=== PATIENT | male | born 1960 | race Caucasian/White ===

== ENCOUNTER 2018-12-31 17:23 | Outpatient (REF) | payer BC, SELFPAY ==
[2018-12-31 22:57] LABS: ALT 46 U/L (16-63); AST 37 U/L (15-37); Albumin 4.3 g/dL (3.4-5.0); Alkaline Phosphatase 111 U/L (46-116); Anion Gap 10.3 mmol/L (3-11); BUN 17 mg/dL (7-18); Bilirubin, Total 0.3 mg/dL (0.2-1.0); CO2 26.7 mmol/L (21.0-32.0); CREATININE 0.98 mg/dL (0.70-1.30); Calcium 8.8 mg/dL (8.5-10.1); Chloride 102 mmol/L (98-107); Glucose 103 mg/dL (70-100); Potassium 4.4 mmol/L (3.5-5.1); Sodium 139 mmol/L (136-145); Total Protein 7.5 g/dL (6.4-8.2)
[2019-01-05 08:11] LABS: PSA, Screening 3.6 ng/mL (0.0-3.5)
== END 2018-12-31 17:43 ==
LOC: NCHCN 17:23
PROVIDERS: PCP Family Medicine; Visit Provider Family Medicine
DX: Z00.00 Encounter for general adult medical examination without abnormal findings (principal); I10 Essential (primary) hypertension; E78.5 Hyperlipidemia, unspecified; I25.10 Atherosclerotic heart disease of native coronary artery without angina pectoris; Z12.5 Encounter for screening for malignant neoplasm of prostate
CPT/HCPCS: 80053; 84153

== ENCOUNTER 2019-09-18 07:31 | Outpatient (CLI) | payer BC, SELFPAY ==
[2019-09-22 03:12] LABS: COVID-19 RT-PCR Result NEGATIVE (Negative)
== END 2019-09-18 07:51 ==
PROVIDERS: PCP Family Medicine; Visit Provider Surgery
DX: Z01.818 Encounter for other preprocedural examination (principal)
CPT/HCPCS: U0003

== ENCOUNTER 2019-09-22 07:08 | Day surgery (SDC) | payer BC, SELFPAY ==
[2019-09-22 07:21] VITALS: BP 166/109; PULSE 67; RESP 18; TEMP 36.7; O2SAT 100
[2019-09-22] MEDS: Lactated Ringers 1,000 ML 80 ML IV (07:45)
--- NOTE | 2019-09-22 08:47 | BOWEL_PTH ---
PATIENT: Kevin Gustafson LOC: [facility] U#:[id number] AGE/SX: 59/M ROOM: RE09/22/[address]: Dolores Khanna : 1960 BED: DIS: 09/22/2019 SPEC #: [id number] RECD: 09/22/19 12:39 STATUS: OLGA RE #: [id number] JOSE: 09/22/19 08:[address]: Dolores Khanna DEPT: Surgical Specimen RECD BY: Yumiko Stallworth ENTERED: 09/22/19 12:40 SP TYPE: Bowel OTHR DR: Tomasa Tolliver V Tissues: 1 - BIOPSY BOWEL 2 - BIOPSY BOWEL 3 - BIOPSY BOWEL Procedures: GROSS AND MICRO LEVEL 4 Comments: [id number]
--- NOTE | 2019-09-22 09:41 | COLE_ITS ---
Date of service: 09/22/19 Time of Service: 09:41 Colonoscopy Report Date of procedure: 09/22/19 Pre-op diagnosis general: CRC screen Post-op diagnosis procedure note: other (polyp- 70 cm- cold bx. 25cm x2 hot snare. 30cmx1 hot biting ) Procedure: CE and poly[ectomy x4 Surgeon: Dolores Khanna Anesthesia proc note operative: MAC Estimated blood loss (mL): 1 Pathology: other Complications: None Disposition: same day Prep: Miralax/Dulcolax Retraction Time: 15 mins Procedure Description: After informed consent was obtained the patient was taken to the procedure room and placed in a left decubitous position. Monitors were applied and a time out was done. The patients name, date of , procedure, allergies to medications and metal in their body was reviewed. The patient was then sedated. Once sedated and comfortable a rectal exam was done. External exam was normal. Internal exam revealed a normal sphincter tone and no palpable masses. The prostate not palpable. The scope was then introduced and retrofelexed. no internal hemorrhoids were identified. The scope was then advanced to the cecum w/out difficulty. The TI and appendiceal orifice were identified. The prep was adequate. The scope was then slowly retracted over 15 minutes back into the rectum. Polyps were removed at: 70cm w/ cold forcept. 30cm w/ hot forcept. 25cm- x2 w/ hot snare. Spec imen is retrieved and no bleeding is noted. There is no AVMs or diverticula apparent. Mucosa is pink and healthy.. The scope was removed and the patient was woken up and taken back to Same day surgery in stable condition. The patient tolerated the procedure well and there were no immediate complications. Follow up: The patient should follow up in 3-5 years, path pd- unless they develop changes in bowel habits or other new gastrointestinal complaints.
--- NOTE | 2019-09-22 09:45 | PDOC.DSDIS_ITS ---
Discharge Plan Disposition Patient Disposition: HOME Condition: Good Discharge Details Attending Provider: Dolores Khanna Primary Care Provider: Tomasa Tolliver V Home Meds and New Rx's Prescriptions: Discontinued bisacodyl [Dulcolax (bisacodyl)] 5 mg tablet,delayed release (DR/EC) 5 mg PO ONCE Qty: 4 RF: 0 polyethylene glycol 3350 17 gram/dose powder 17 g PO ONCE Qty: 238 RF: 0 aspirin 325 mg tablet 325 mg PO DAILY RF: 0 No Action nitroglycerin [Nitrostat] 0.4 mg tablet, sublingual 0.4 mg SL Q5M PRNRF: 0 atorvastatin [Lipitor] 40 mg tablet 40 mg PO QHS RF: 0 triamcinolone acetonide 0.1 % ointment 1 applic TP BID RF: 0 carvedilol 6.25 mg tablet 6.25 mg PO BID RF: 0 lisinopril 20 mg tablet 20 mg PO DAILY RF: 0 Chantix 1 mg tablet 1 mg PO BID RF: 0 Discharge Instructions Additional Instructions: Findings: polyps x4. Follow up:repeat in 3-5 yrs. Will send a letter in 2-3 wks w/ biopsy results and when to repeat scope. No ASA/NSAIDs for 2weeks. Please call if you develop: fevers >101.5 Nausea or Vomiting Abdominal pain that is not transient DAY SURGERY UNIT POST COLONOSCOPY INSTRUCTIONS 1. Because there will be medication in your system for the next 24 hours, you may feel a little sleepy. Your coordination will be affected. Therefore: a. Do not drive or operate dangerous equipment for 24 hours. b. Do not drink alcohol beverages for 24 hours (not even beer). c. Plan to go home and rest for the day. 2. Generally there are no restrictions on your activity after a day or so has gone by, but you may feel a bit fatigued for a few days. 3 After you arrive home you may have a light meal and return to a normal diet as you can tolerate it without feeling sick to your stomach. 4. After surgery, you may feel pain or discomfort. This should be only tr ansient, but if it persists please contact your doctor. 5. If there are any questions regarding the findings of your procedure, please feel free to contact your doctor. 6. If you are unable to contact your doctor with a problem, contact the hospital at [phone]. 1. Continue all your regular medications unless directed otherwise. I understand the above instructions and have no questions. Signature of Patient or Responsible Adult Escort Date/Time Name of Responsible Adult Escort Signature of Nurse Date/Time Activity:: no lifting over 20#'s x 24 hrs Diet:: small light meals x 24 hrs Discharge Orders Discharge Orders: Discharge Order (Routine); Ordered 09/22/19 Ordered By: Dolores Khanna DS: Diagnosis Discharge Diagnosis (1) Colon cancer screening: Status: Acute (2) CAD (coronary artery disease): Status: Chronic (3) History of tobacco abuse: Status: Acute (4) Hyperlipidemia: Status: Acute (5) HTN (hypertension): Status: Chronic
[2019-09-22 10:04] VITALS: BP 170/93; PULSE 58; RESP 18; TEMP 36.2; O2SAT 100
== END 2019-09-22 10:23 | disposition home or self-care (01) ==
PROVIDERS: PCP Family Medicine; Visit Provider Surgery
PROC: 0DJD8ZZ Inspection of Lower Intestinal Tract, Via Natural or Artificial Opening Endoscopic (ICD-10-PCS; CPT 45378; principal; 2019-09-22 08:30)
DX: Z12.11 Encounter for screening for malignant neoplasm of colon (principal); D12.6 Benign neoplasm of colon, unspecified; K63.5 Polyp of colon
CPT/HCPCS: 45385; 45380; 45384; 88305; J2001; J2704

== ENCOUNTER 2020-05-02 15:38 | Outpatient (REF) | payer BC, SELFPAY ==
[2020-05-04 13:16] LABS: COVID-19 RT-PCR UVMMC Result Negative (Negative)
== END 2020-05-02 15:39 | disposition home or self-care (01) ==
LOC: NCHCN 15:38
PROVIDERS: PCP Family Medicine; Visit Provider Physician Assistant Medical
DX: Z20.822 Contact with and (suspected) exposure to COVID-19 (principal); J06.9 Acute upper respiratory infection, unspecified
CPT/HCPCS: U0003

== ENCOUNTER 2021-07-04 09:05 | Outpatient (REF) | payer BC, SELFPAY ==
[2021-07-05 15:03] LABS: COVID-19 RT-PCR UVMMC Result Negative (Negative)
== END 2021-07-04 09:06 | disposition home or self-care (01) ==
LOC: NCHCN 09:05
PROVIDERS: PCP Family Medicine; Visit Provider Family Medicine
DX: Z20.822 Contact with and (suspected) exposure to COVID-19 (principal)
CPT/HCPCS: U0003

== ENCOUNTER 2021-07-20 17:23 | Outpatient (REF) | payer BC, SELFPAY ==
[2021-07-20 16:28] LABS: ALT 61 U/L (16-63); AST 50 U/L (15-37); Alkaline Phosphatase 123 U/L (46-116); Anion Gap 9.4 mmol/L (3-11); BUN 13 mg/dL (7-18); Bilirubin, Total 0.5 mg/dL (0.2-1.0); CO2 26.6 mmol/L (21.0-32.0); CREATININE 0.8 mg/dL (0.70-1.30); Calcium 8.7 mg/dL (8.5-10.1); Calculated LDL 82 mg/dL (<100); Chloride 101 mmol/L (98-107); Cholesterol 171 mg/dL (<200); Glucose 89 mg/dL (74-106); HDL Cholesterol 76 mg/dL (40-60); Sodium 137 mmol/L (136-145); Total Protein 7.1 g/dL (6.4-8.2); Triglyceride 65 mg/dL (<150)
[2021-07-20 16:41] LABS: C-Reactive Protein 0.09 mg/dL (0.0-0.3)
[2021-07-20 22:47] LABS: PSA, Screening 5.8 ng/mL (<=4.5)
== END 2021-07-20 17:24 | disposition home or self-care (01) ==
LOC: NCHCN 17:23
PROVIDERS: PCP Family Medicine; Visit Provider Family Medicine
DX: Z00.00 Encounter for general adult medical examination without abnormal findings (principal); I10 Essential (primary) hypertension; E78.5 Hyperlipidemia, unspecified; Z12.5 Encounter for screening for malignant neoplasm of prostate
CPT/HCPCS: 80053; 80061; 84153; 86140

== ENCOUNTER 2022-02-01 11:40 | Outpatient (REF) | payer BC, SELFPAY ==
[2022-02-01 16:27] LABS: ALT 48 U/L (16-63); AST 51 U/L (15-37); Albumin 4.4 g/dL (3.4-5.0); Alkaline Phosphatase 131 U/L (46-116); Anion Gap 9.1 mmol/L (3-11); BUN 14 mg/dL (7-18); Bilirubin, Total 0.5 mg/dL (0.2-1.0); CO2 27.9 mmol/L (21.0-32.0); CREATININE 0.9 mg/dL (0.70-1.30); Chloride 100 mmol/L (98-107); Estimated GFR 97.17 (mL/min/1.73m2); Glucose 97 mg/dL (74-106); Potassium 3.8 mmol/L (3.5-5.1); Sodium 137 mmol/L (136-145); Total Protein 7.6 g/dL (6.4-8.2)
[2022-02-04 09:53] LABS: PSA, Diagnostic 6.3 ng/mL (<=4.5)
== END 2022-02-01 11:41 | disposition home or self-care (01) ==
LOC: NCHCN 11:40
PROVIDERS: PCP Family Medicine; Visit Provider Family Medicine
DX: I25.10 Atherosclerotic heart disease of native coronary artery without angina pectoris (principal); I10 Essential (primary) hypertension; R97.20 Elevated prostate specific antigen [PSA]
CPT/HCPCS: 80053; 84153

== ENCOUNTER 2022-08-09 09:26 | Outpatient (REF) | payer BC, SELFPAY ==
[2022-08-09 17:45] LABS: ALT 37 U/L (16-63); AST 32 U/L (15-37); Albumin 4.1 g/dL (3.4-5.0); Alkaline Phosphatase 110 U/L (46-116); Anion Gap 10.5 mmol/L (3-11); BUN 14 mg/dL (7-18); Bilirubin, Total 0.4 mg/dL (0.2-1.0); CO2 25.5 mmol/L (21.0-32.0); CREATININE 0.7 mg/dL (0.70-1.30); Calcium 8.8 mg/dL (8.5-10.1); Chloride 100 mmol/L (98-107); Estimated GFR 104.18 (mL/min/1.73m2); Glucose 98 mg/dL (74-106); Potassium 3.9 mmol/L (3.5-5.1); Sodium 136 mmol/L (136-145); Total Protein 7.4 g/dL (6.4-8.2)
[2022-08-12 09:51] LABS: PSA, Diagnostic 6.3 ng/mL (<=4.5)
[2022-08-12 10:16] LABS: Lyme Ab w Rflx to Lyme Confirm Negative (Negative)
[2022-08-13 16:50] LABS: Anaplasma phagocytophilum Negative (Negative); B. miyamotoi PCR Negative (Negative); Babesia divergens/MO-1 Negative (Negative); Babesia duncani Negative (Negative); Babesia microti Negative (Negative); Ehrlichia chaffeensis Negative (Negative); Ehrlichia ewingii/canis Negative (Negative); Ehrlichia muris eauclairensis Negative (Negative)
== END 2022-08-09 09:27 | disposition home or self-care (01) ==
LOC: NCHCN 09:26
PROVIDERS: PCP Family Medicine; Visit Provider Family Medicine
DX: R21 Rash and other nonspecific skin eruption (principal)
CPT/HCPCS: 80053; 87798; 84153; 86618

== ENCOUNTER 2023-03-07 12:17 | Outpatient (REF) | payer BC, SELFPAY ==
[2023-03-07 16:49] LABS: ALT 30 U/L (16-63); AST 28 U/L (15-37); Albumin 4.1 g/dL (3.4-5.0); Alkaline Phosphatase 115 U/L (46-116); Anion Gap 8.5 mmol/L (3-11); BUN 13 mg/dL (7-18); Bilirubin, Total 0.5 mg/dL (0.2-1.0); CO2 27.5 mmol/L (21.0-32.0); CREATININE 0.9 mg/dL (0.70-1.30); Calcium 9.1 mg/dL (8.5-10.1); Chloride 100 mmol/L (98-107); Estimated GFR 95.97 (mL/min/1.73m2); Glucose 102 mg/dL (74-106); Potassium 3.9 mmol/L (3.5-5.1); Sodium 136 mmol/L (136-145); Total Protein 7.5 g/dL (6.4-8.2)
== END 2023-03-07 12:18 | disposition home or self-care (01) ==
LOC: NCHCN 12:17
PROVIDERS: Nurse Practitioner Gerontology; PCP Family Medicine; Visit Provider Family Medicine
DX: I10 Essential (primary) hypertension (principal); R97.20 Elevated prostate specific antigen [PSA]
CPT/HCPCS: 80053; 84153

== ENCOUNTER 2024-02-10 16:08 | Outpatient (REF) | payer BC, SELFPAY ==
[2024-02-10 20:42] LABS: ALT 29 U/L (16-63); AST 39 U/L (15-37); Albumin 4.2 g/dL (3.4-5.0); Alkaline Phosphatase 131 U/L (46-116); Anion Gap 12.6 mmol/L (3-11); BUN 19 mg/dL (7-18); Bilirubin, Total 0.57 mg/dL (0.2-1.0); CO2 26.4 mmol/L (21.0-32.0); CREATININE 1.1 mg/dL (0.70-1.30); Calcium 9.3 mg/dL (8.5-10.1); Chloride 101 mmol/L (98-107); Estimated GFR 74.96 (mL/min/1.73m2); Glucose 103 mg/dL (74-106); Potassium 3.8 mmol/L (3.5-5.1); Sodium 140 mmol/L (136-145); Total Protein 7.7 g/dL (6.4-8.2)
[2024-02-11 18:39] LABS: PSA, Diagnostic 5.9 ng/mL (<=4.5)
== END 2024-02-10 16:09 | disposition home or self-care (01) ==
LOC: NCHCN 16:08
PROVIDERS: PCP Family Medicine; Visit Provider Family Medicine
DX: I10 Essential (primary) hypertension (principal); R97.20 Elevated prostate specific antigen [PSA]
CPT/HCPCS: 80053; 84153

== ENCOUNTER 2024-09-11 13:38 | Observation (INO) | payer BC, SELFPAY ==
[2024-09-11] VITALS (16 sets, daily range): BP systolic 137–235; BP diastolic 81–123; PULSE 75–94; RESP 16–24; TEMP 36.4–36.6; O2SAT 94–98
[2024-09-11 13:57] LABS: Abs Immature Grans 0.02 10^3/uL (0.0-0.06); HCT 40.3 % (40.0-50.0); HGB 13.9 g/dL (13.5-17.5); Immature Grans % 0.3 %; MCH 31.2 pg (27.0-33.0); MCHC 34.5 % (32.0-36.0); MCV 90 fL (80-95); MPV 9.0 fL (8.0-11.0); Platelet Count 184 10^3/uL (130-400); RBC 4.46 10^6/uL (4.36-5.78); RDW 12.1 % (11.8-14.1); RDW-SD 40.3 fL; WBC 7.51 10^3/uL (4.4-10.8)
[2024-09-11] MEDS: methylPREDNISolone SUCC 125 MG VIAL IVP (14:01)
[2024-09-11] MEDS: diphenhydrAMINE 50 MG/ML VIAL IVP (14:02)
[2024-09-11] MEDS: EPINEPHrine 1 MG/ML AMP pres-free 0.3 MG SC (14:02)
[2024-09-11] MEDS: Tranexamic Acid 1,000 MG/10 ML VIAL 1000 MG IVP (14:02)
--- NOTE | 2024-09-11 14:08 | ED.GENADUL_ITS ---
Discharge Plan Disposition Patient Disposition: Admit to [facility] Condition: Stable Discharge Details Clinical Impression: Angioedema due to angiotensin converting enzyme inhibitor (JUSTIN-I) Primary Care Provider: Tomasa Tolliver V ED Provider: Morelia Moyer Home Meds and New Rx's Prescriptions: No Action nitroglycerin [Nitrostat] 0.4 mg tablet, sublingual 0.4 mg SL Q5M PRN Rx Instructions: do not exceed 3 doses per episode atorvastatin [Lipitor] 40 mg tablet 40 mg PO QHS carvedilol 6.25 mg tablet 6.25 mg PO BID Rx Instructions: must administer with a meal/food aspirin 325 mg tablet,delayed release (DR/EC) 325 mg PO DAILY lisinopril 20 mg tablet 40 mg PO DAILY HPI General Mode of arrival: ambulatory . Date/Time Provider Initiated Documentation: 09/11/24 13:39 . Limitations to Documentation: no limitations . Information obtained by: patient, family and old records reviewed . HPI Narrative: This is a 64-year-old male patient with a past medical history significant for CAD, hypertension, and hyperlipidemia who is presenting for evaluation of facial swelling. The patient reports that he was in his normal state of health today, was working outside in the jolly and began to feel swelling in his lip and his face. He states that he did have to swat at the bee but he is not sure if he actually got stung. He initially had some rounding of his nose, took a Zyrtec at home but has not noted any improvement in his symptoms. The significant swelling prompted him to seek care today. The patient has never had an allergic reaction before, reports no recent new exposures to foods, lotions or soaps, etc. He has not noted any new skin changes or hives, has not had nausea or vomiting, and denies throat swelling or difficulty breathing. His reports that he has had intermittent facial swelling like this, sometimes limited to the eyes, sometimes involving the mouth, but has come and gone for some time. He did recently have his lisinopril dose increased to 40 mg daily. Related Data Home Medications ?Medication ?Instructions ?Recorded ?Confirmed atorvastatin 40 mg tablet (Lipitor) 40 mg PO QHS 08/2209/11/24 carvedilol 6.25 mg tablet 6.25 mg PO BID 06/29/20 07/1 9/25 nitroglycerin 0.4 mg sublingual 0.4 mg sublingual Q5M PRN 08/23/19 09/11/24 tablet (Nitrostat) aspirin 325 mg tablet,delayed 325 mg PO DAILY 02/14/22 09/11/24 release lisinopril 20 mg tablet 40 mg PO DAILY 04/09/2308/24 Allergies Allergy/AdvReac Type Severity Reaction Status Date / Time No Known Allergies Allergy Verified 09/11/24 13:48 General Stated Complaint: Allergic SHRUTI: 2 Exam Narrative Exam Narrative: Gen: Awake and alert, in no apparent distress HEENT: Non-icteric sclera, PERRL, no conjunctival injection, EOMs are full and without entrapment, no visual changes reported. The patient has periorbital edema underneath both eyes, and swelling/angioedema of the upper lip. His posterior pharynx is without erythema or swelling, he is managing his secretions and has no trismus. Neck: Supple Lungs: No apparent respiratory distress, normal respiratory effort. No stridor or wheezing appreciated on auscultation CV: Appears well perfused, heart with regular rate and rhythm, strong distal pulses, soft, nontender Abdomen: Non-distended MSK: Moves 4 extremities without apparent limitation in ROM Skin: Visualized skin without urticaria, the patient does have some psoriatic plaques appreciated to his lower back, unchanged from prior Neuro: Normal Gait, no obvious focal deficits or facial asymmetry. Speaks in full, clear sentences. Psych: Appropriate for situation. Course Vital Signs Vital signs: Vital Signs Pulse 94 H 09/11/24 13:42 Respiratory Rate 18 09/11/24 13:42 Blood Pressure 235/123 H 09/11/24 13:42 Pulse Oximetry 98 09/11/24 13:42 Pulse 94 H 09/11/24 13:42 Respiratory Rate 18 09/11/24 13:42 Blood Pressure 235/123 H 09/11/24 13:42 Pulse Oximetry 98 09/11/24 13:42 Lab/Test Results Lab/Test Results: Laboratory Tests Range/Units 09/11/24 13:51 WBC (4.4-10.8) 10^3/uL 7.51 RBC (4.36-5.78) 10^6/uL 4.46 Hgb (13.5-17.5) g/dL 13.9 Hct (40.0-50.0) % 40.3 MCV (80-95) fL 90 MCH (27.0-33.0) pg 31.2 MCHC (32.0-36.0) % 34.5 RDW (11.8-14.1) % 12.1 Plt Count (130-400) 10^3/uL 184 MPV (8.0-11.0) fL 9.0 Immature Gran % % 0.3 Neutrophils % % 69.9 Lymphocytes % % 19.2 Monocytes % % 7.2 Eosinophils % % 2.1 Basophils % % 1.3 Nucleated RBC % (0.0-0.3) % 0.0 Absolute Neutrophils (1.2-6.7) 10^3/uL 5.25 Absolute Lymphocytes (1.2-3.4) 10^3/uL 1.44 Absolute Monocytes (0.1-0.8) 10^3/uL 0.54 Absolute Eosinophils (0.0-0.7) 10^3/uL 0.16 Absolute Basophils (0.0-0.2) 10^3/uL 0.10 Medical Decision Making This is a 64-year-old male patient presenting for evaluation of facial swelling. My differential includes but is not limited to JUSTIN inhibitor induced angioedema, certainly considered anaphylaxis and allergic reaction. Reassuringly, the patient does not seem to have airway involvement at this time and does not require intubation for airway protection. The patient has no family history or longstanding history of angioedema and JUSTIN inhibitor is more compelling than a diagnosis of hereditary angioedema at this time. Considered metabolic electrolyte derangements, kidney injury, anemia. I will provide the patient with anaphylaxis treatment given the question of potential bee sting, to include epinephrine, diphenhydramine, and prednisone. Given the angioedema and the JUSTIN inhibitor use I will also provide him with a gram of TXA. The patient will be monitored in our emergency department, but will likely require admission for observation. - I independently interpreted the laboratory studies, which show no significant leukocytosis, anemia, or thrombocytopenia. The chemistry panel is without evidence of electrolyte abnormality, kidney dysfunction, or liver injury, with the exception of a hypomagnesemia to 1.4. This was repleted intravenously. The patient had some improvement in his angioedema but not resolution. He did not have any extension into the airway nor development of shortness of breath or difficulty managing secretions. I feel that the patient would benefit from a 24-hour observation given that he received epinephrine and this is his first event that his been identified in the medical environment. He will require cessation of his lisinopril and identification of an alternative agent for blood pressure management. The patient does endorse daily drinking but does not report any history of withdrawal syndrome, though the hospitalist was made aware of this in our handoff. He has been graciously accepted to the hospitalist service for ongoing observation, and was transerred to their care without incident. Morelia Moyer MD [facility] All Active Problems (Updated 09/11/24 @ 16:48 by Morelia Moyer MD) Angioedema due to angiotensin converting enzyme inhibitor (JUSTIN-I) (Acute) Alcohol abuse (Chronic) Angioedema (Acute) Atherosclerotic heart disease (Acute) Hx of adenomatous colonic polyps (Acute) Tobacco use (Acute) COVID-19 (Acute) Psoriasis (Chronic) Elevated PSA (Acute) Tubulovillous adenoma (Acute ~09/22/19) Pre-op evaluation (Acute) Colon cancer screening (Acute) CAD (coronary artery disease) (Chronic) History of tobacco abuse (Acute) Hyperlipidemia (Acute) HTN (hypertension) (Chronic) Medical History Fracture of left clavicle s/p ORIF 2011 Hx of fracture of clavicle ORIF l clavicle- Lucille Pneumothorax L side approx 1997 or 1998 Sessile colonic polyp Surgical History History of heart artery stent LAD in 2011 Social History Smoking/Tobacco Use Status: Current every day Tobacco Type: cigarettes Years smoked: 25 Smoking risk assessment performed?: Yes Alcohol Intake: current Alcohol Intake frequency: 0-2 drinks per day Alcohol type: hard liquor Drug use: Never Substance use type: does not use Do you feel safe at home: Yes Do you feel safe in your relationship?: Yes PAWSS Have you Been Recently Intoxicated or Drunk Within the Last 30 days?: No Have you Ever Experienced Previous Episodes of Alcohol Withdrawal?: No Have you ever Experienced Withdrawal Seizures?: No Have you ever Experienced Delirium Tremens(DT)s?: No Have you ever undergone Alcohol Rehabilitation Treatment (i.e, inpt ot outpatient treatment programs)?: No Have you ever Experienced Blackouts?: No Have you ever Combined Alcohol with other Downers within the last 90 days?: No Have you ever Combined Alcohol with any other Substance of Abuse during the last 90 days?: No Positive Blood Alcohol level on Presentation? [PCS.BAL]: No Evidence of Increased Autonomic Activity (i.e. HR>120, tremor, sweating, agitation, nausea)?: No Result: 0
[2024-09-11 14:23] LABS: ALT 35 U/L (16-63); AST 40 U/L (15-37); Albumin 4.1 g/dL (3.4-5.0); Alkaline Phosphatase 132 U/L (46-116); Anion Gap 12.3 mmol/L (3-11); BUN 12 mg/dL (7-18); Bilirubin, Total 0.6 mg/dL (0.2-1.0); CO2 26.7 mmol/L (21.0-32.0); Calcium 9.1 mg/dL (8.5-10.1); Chloride 98 mmol/L (98-107); Estimated GFR 98.83 (mL/min/1.73m2); Glucose 128 mg/dL (74-106); Magnesium 1.4 mg/dL (1.8-2.4); Potassium 3.5 mmol/L (3.5-5.1); Sodium 137 mmol/L (136-145); Total Protein 8.0 g/dL (6.4-8.2)
[2024-09-11] MEDS: MAGNESIUM SULFATE 2 GM/50 ML BAG IV_INF (15:04)
--- NOTE | 2024-09-11 16:11 | W.PM.HP.N ---
Date of service: 09/11/24 Time of Service: 16:11 Assessment and Plan Assessment and plan (1) Angioedema: Status: Acute Assessment and plan: ` I will put the patient on scheduled Benadryl as well as prednisone. Monitor overnight and reevaluate in the morning. Patient should switch from JUSTIN inhibitor to an ARB or another hypertensive medication. (2) HTN (hypertension): Status: Chronic Assessment and plan: Patient is currently on Coreg as well as lisinopril. Will need to have an ARB added prior to discharge. Will need optimization in the outpatient setting (3) History of tobacco abuse: Status: Acute Assessment and plan: NicoDerm as needed (4) Alcohol abuse: Status: Chronic Assessment and plan: Patient has a history of daily alcohol use with no history of DTs. At this point we will just do a CIWA protocol and Ativan if needed. Order completeness will add thiamine while he is here. DVT prophylaxis with Lovenox History of Present Illness History of Present Illness Chief Complaint: swelling of lips Narrative: This is a 64-year-old gentleman who has a known history of hypertension and takes lisinopril 40 mg daily. Presents with angioedema to the ED and was subsequently admitted to the hospital service for monitoring overnight. The patient was treated with steroids, Benadryl, and epinephrine. Patient improved remarkably with these interventions. On further interview, the patient has never had this before. He does endorse daily alcohol use as well as tobacco use. Patient denies any history of DTs. He is otherwise without complaint. Patient does not endorse any other problems at this time. PFSH All Active Problems (Updated 09/11/24 @ 16:14 by Morales Schaffer MD) Alcohol abuse (Chronic) Angioedema (Acute) Atherosclerotic heart disease (Acute) Hx of adenomatous colonic polyps (Acute) Tobacco use (Acute) COVID-19 (Acute) Psoriasis (Chronic) Elevated PSA (Acute) Tubulovillous adenoma (Acute ~09/22/19) Pre-op evaluation (Acute) Colon cancer screening (Acute) CAD (coronary artery disease) (Chronic) History of tobacco abuse (Acute) Hyperlipidemia (Acute) HTN (hypertension) (Chronic) Medical History Fracture of left clavicle s/p ORIF 2011 Hx of fracture of clavicle ORIF l clavicle- Lucille Pneumothorax L side approx 1997 or 1998 Sessile colonic polyp Surgical History History of heart artery stent LAD in 2012 Social History Smoking/Tobacco Use Status: Current every day Tobacco Type: cigarettes Years smoked: 25 Smoking risk assessment performed?: Yes Alcohol Intake: current Alcohol Intake frequency: 0-2 drinks per day Alcohol type: hard liquor Drug use: Never Substance use type: does not use Do you feel safe at home: Yes Do you feel safe in your relationship?: Yes Meds Allergies and Home Medications Allergies Allergy/AdvReac Type Severity Reaction Status Date / Time No Known Allergies Allergy Verified 09/11/24 13:48 Home Medications ?Medication ?Instructions ?Recorded ?Confirmed ?Type atorvastatin 40 mg tablet (Lipitor) 40 mg PO QHS 08/23/19 09/11/24 History carvedilol 6.25 mg tablet 6.25 mg PO BID 08/23/19 09/11/24 History nitroglycerin 0.4 mg sublingual 0.4 mg sublingual Q5M PRN 08/23/19 09/11/24 History tablet (Nitrostat) aspirin 325 mg tablet,delayed 325 mg PO DAILY 02/14/22 09/11/24 History release lisinopril 20 mg tablet 40 mg PO DAILY 04/09/23 09/11/24 History Exam Narrative Exam Narrative: HEENT-normocephalic atraumatic mucous membranes moist oropharynx clear Neck-no lymphadenopathy no JVD no thyromegaly Cardiovascular-regular rate and rhythm no murmur rubs or gallops Lungs-clear to auscultation bilaterally with good air exchange there is absolutely no accessory muscle use. Abdomen-soft nontender nondistended Extremities-no sinus clubbing or edema bilaterally Neurologic-cranial nerves II through XII intact as tested nonfocal exam Results Labs 09/11/24 13:51 09/11/24 13:51 Labs: Laboratory Results - last 24 hr 09/11/24 13:51 WBC 7.51 RBC 4.46 Hgb 13.9 Hct 40.3 MCV 90 MCH 31.2 MCHC 34.5 RDW 12.1 Plt Count 184 MPV 9.0 Immature Gran % 0.3 Neutrophils % 69.9 Lymphocytes % 19.2 Monocytes % 7.2 Eosinophils % 2.1 Basophils % 1.3 Nucleated RBC % 0.0 Absolute Neutrophils 5.25 Absolute Lymphocytes 1.44 Absolute Monocytes 0.54 Absolute Eosinophils 0.16 Absolute Basophils 0.10 Sodium 137 Potassium 3.5 Chloride 98 Carbon Dioxide 26.7 Anion Gap 12.3 H BUN 12 Creatinine 0.8 Est GFR (CKD-EPI 2020) 98.83 Glucose 128 H Calcium 9.1 Magnesium 1.4 L Total Bilirubin 0.6 AST 40 H ALT 35 Alkaline Phosphatase 132 H Total Protein 8.0 Albumin 4.1 Last Vital Signs Pulse 83 09/11/24 15:31 Resp 20 09/11/24 15:31 BP 169/86 H 09/11/24 15:31 Pulse Ox 96 09/11/24 15:31 PAWSS Have you Been Recently Intoxicated or Drunk Within the Last 30 days?: No Have you Ever Experienced Previous Episodes of Alcohol Withdrawal?: No Have you ever Experienced Withdrawal Seizures?: No Have you ever Experienced Delirium Tremens(DT)s?: No Have you ever undergone Alcohol Rehabilitation Treatment (i.e, inpt ot outpatient treatment programs)?: No Have you ever Experienced Blackouts?: No Have you ever Combined Alcohol with other Downers within the last 90 days?: No Have you ever Combined Alcohol with any other Substance of Abuse during the last 90 days?: No Positive Blood Alcohol level on Presentation? [PCS.BAL]: No Evidence of Increased Autonomic Activity (i.e. HR>120, tremor, sweating, agitation, nausea)?: No Result: 0 Time Spent Time spent with Patient: 40-54 minutes Time was spent: preparing to see the patient(eg.review tests), obtaining and/or reviewing separately otained hiistory, ordering medications,tests, procedures, referring, communicating with other health critical care unit manager, indepentently interpreting results, counseling the patient and care coordination
--- NOTE | 2024-09-11 17:02 | W.PC.ACHO ---
Registration Status: REG ER Primary Language: Preferred Language: Macedonian ED Information & Data Chief Complaint Allergic 09/11/24 14:12 Triage Note Patient complaining of 09/11/24 13:42 allergic reaction to a possible bee sting. Swelling to eyes, face and lips. denies SOB Medical / Surgical History (Last Reviewed 11/26/22 @ 10:00 by Sharona Ricketts DNP) Sessile colonic polyp Hx of fracture of clavicle Fracture of left clavicle Pneumothorax (Last Reviewed 11/26/22 @ 10:00 by Sharona Ricketts DNP) History of heart artery stent Most Recent Vital Signs Pulse 85 09/11/24 16:46 Pulse 85 09/11/24 16:46 Respiratory Rate 19 09/11/24 16:46 Respiratory Effort Normal 09/11/24 14:24 Respiratory Pattern Normal 09/11/24 14:24 Blood Pressure 170/93 H 09/11/24 16:46 Blood Pressure Mean 121 09/11/24 16:46 Pulse Oximetry 96 09/11/24 16:46 Allergies No Known Allergies Allergy (Verified 09/11/24 13:48) Precautions Isolation Standard precaution 09/11/24 13:51 IV IV Catheter Type [Left Wrist] Saline Lock IV Catheter Gauge [Left Wrist] 18 Diet Orders Category Date Time Status Regular/Normal [DIET] Nutrition 09/11/24 Dinner Active Diagnostics 09/11/24 Range/Units 13:51 WBC 7.51 (4.4-10.8) 10^3/uL RBC 4.46 (4.36-5.78) 10^6/uL Hgb 13.9 (13.5-17.5) g/dL Hct 40.3 (40.0-50.0) % MCV 90 (80-95) fL MCH 31.2 (27.0-33.0) pg MCHC 34.5 (32.0-36.0) % RDW 12.1 (11.8-14.1) % Plt Count 184 (130-400) 10^3/uL MPV 9.0 (8.0-11.0) fL Immature Gran % 0.3 % Neutrophils % 69.9 % Lymphocytes % 19.2 % Monocytes % 7.2 % Eosinophils % 2.1 % Basophils % 1.3 % Nucleated RBC % 0.0 (0.0-0.3) % Absolute Neutrophils 5.25 (1.2-6.7) 10^3/uL Absolute Lymphocytes 1.44 (1.2-3.4) 10^3/uL Absolute Monocytes 0.54 (0.1-0.8) 10^3/uL Absolute Eosinophils 0.16 (0.0-0.7) 10^3/uL Absolute Basophils 0.10 (0.0-0.2) 10^3/uL Sodium 137 (136-145) mmol/L Potassium 3.5 (3.5-5.1) mmol/L Chloride 98 (98-107) mmol/L Carbon Dioxide 26.7 (21.0-32.0) mmol/L Anion Gap 12.3 H (3-11) mmol/L BUN 12 (7-18) mg/dL Creatinine 0.8 (0.70-1.30) mg/dL Est GFR (CKD-EPI 2020) 98.83 (mL/min/1.73m2) Glucose 128 H (74-106) mg/dL Calcium 9.1 (8.5-10.1) mg/dL Magnesium 1.4 L (1.8-2.4) mg/dL Total Bilirubin 0.6 (0.2-1.0) mg/dL AST 40 H (15-37) U/L ALT 35 (16-63) U/L Alkaline Phosphatase 132 H (46-116) U/L Total Protein 8.0 (6.4-8.2) g/dL Albumin 4.1 (3.4-5.0) g/dL Intake and Output - 24 Hour Total 09/11/24 13:38 thru 09/11/24 13:42 Weight 79.379 kg Falls Risk Assessment History of Falls No History 09/11/24 14:24 Contributing Factors No Factors 09/11/24 14:24 Ambulatory Aids Independent 09/11/24 14:24 Tubes/Lines None 09/11/24 14:24 Gait Evaluation No gait disturbance 09/11/24 14:24 Cognition No cognitive impairment 09/11/24 14:24 Fall Total Score 0 09/11/24 14:24 Level of Risk Standard/Low Risk 09/11/24 14:24 Problems (Last Reviewed 11/26/22 @ 10:00 by Sharona Ricketts DNP) Alcohol abuse (Chronic) Angioedema (Acute) History of tobacco abuse (Acute) HTN (hypertension) (Chronic) v v v v v v v v v Sending and/or Receiving Nurses: Please use comment section below to note any information pertinent to the patient hand-off not included above. Information / Comments: AOx3, VSS, on adm c/o facial, tongue swelling which improved w/treatment in ER. Daily drinker, 0 - CIWA. Report received from: Sonia
[2024-09-11] MEDS: Nicotine 14 MG/24 HR PATCH TD (17:28)
[2024-09-11] MEDS: Enoxaparin 40 MG/0.4 ML SYR SC (17:28)
[2024-09-11] MEDS: predniSONE 20 MG TAB PO (20:06)
[2024-09-11] MEDS: Carvedilol 6.25 MG TAB PO (20:06)
[2024-09-11] MEDS: Normal Saline Flush 10 ML SYR IVP (20:07)
[2024-09-12 03:58] VITALS: BP 167/100; PULSE 76; RESP 18; TEMP 36.6; O2SAT 96
[2024-09-12 07:12] LABS: Abs Immature Grans 0.01 10^3/uL (0.0-0.06); HCT 38.3 % (40.0-50.0); HGB 13.5 g/dL (13.5-17.5); Immature Grans % 0.2 %; MCH 31.6 pg (27.0-33.0); MCHC 35.2 % (32.0-36.0); MCV 90 fL (80-95); MPV 9.9 fL (8.0-11.0); Platelet Count 173 10^3/uL (130-400); RBC 4.27 10^6/uL (4.36-5.78); RDW 11.9 % (11.8-14.1); RDW-SD 39.3 fL; WBC 4.92 10^3/uL (4.4-10.8)
[2024-09-12 07:27] VITALS: BP 184/105; PULSE 80; RESP 17; TEMP 36.9; O2SAT 95
[2024-09-12 07:31] LABS: ALT 28 U/L (16-63); AST 26 U/L (15-37); Albumin 3.7 g/dL (3.4-5.0); Alkaline Phosphatase 121 U/L (46-116); Anion Gap 10.2 mmol/L (3-11); BUN 16 mg/dL (7-18); Bilirubin, Total 0.4 mg/dL (0.2-1.0); CO2 25.8 mmol/L (21.0-32.0); Calcium 8.9 mg/dL (8.5-10.1); Chloride 99 mmol/L (98-107); Estimated GFR 102.89 (mL/min/1.73m2); Glucose 165 mg/dL (74-106); Potassium 3.9 mmol/L (3.5-5.1); Sodium 135 mmol/L (136-145); Total Protein 7.4 g/dL (6.4-8.2)
--- NOTE | 2024-09-12 07:49 | DSE_ITS ---
Date of service: 09/12/24 Time of Service: 07:49 DS: Diagnosis Discharge Diagnosis (1) Angioedema: Status: Acute (2) HTN (hypertension): Status: Chronic (3) History of tobacco abuse: Status: Acute (4) Alcohol abuse: Status: Chronic Discharge Plan Disposition Patient Disposition: Home Condition: Stable Discharge Details Reason For Visit: angioedema from justin inhibitor Admit Date/Time: 09/11/24 15:56 Admit Provider: Morales Schaffer Attending Provider: Morales Schaffer Primary Care Provider: Tomasa Tolliver V Hospital Course Hospital Course: This is a 64-year-old gentleman who had angioedema most likely due to his JUSTIN inhibitor. Was treated with Benadryl epinephrine and steroids. Since his admission in 2019 had any other problems and has been discharged home. I will send him home with a steroid taper and recommendation to take Benadryl as needed. I did offer to replace his lisinopril with losartan but he wants to talk to his primary care physician about this first. He will continue with his other medications including Coreg. Discharged in good health. Home Meds and New Rx's Prescriptions: New prednisone 10 mg tablet 10 mg PO DAILY Qty: 5 0RF Continued nitroglycerin [Nitrostat] 0.4 mg tablet, sublingual 0.4 mg SL Q5M PRN Rx Instructions: do not exceed 3 doses per episode atorvastatin [Lipitor] 40 mg tablet 40 mg PO QHS carvedilol 6.25 mg tablet 6.25 mg PO BID Rx Instructions: must administer with a meal/food aspirin 325 mg tablet,delayed release (DR/EC) 325 mg PO DAILY Discontinued lisinopril 20 mg tablet 40 mg PO DAILY Discharge Instructions Referrals: Tomasa Tolliver MD [Primary Care Provider, Medicine] Referral Note: follow up as scheduled Activity:: Activity as Tolerated Equipment/Supplies:: No Equipment Needed Diet:: As Tolerated Discharge Orders Discharge Orders: Discharge Order (Routine); Ordered 09/12/24 Ordered By: Morales Schaffer DS: Summary Time Spent with Patient providing and/or coordinating discharge services: Less than 30 minutes Status at Discharge Functional status at discharge: independent ambulation Overall status at discharge: patient is back to baseline Mental Status: mental status grossly normal Speech and Movement: speech and movement normal Mood: congruent mood Affect: normal affect Exam Narrative Exam Narrative: HEENT-normocephalic atraumatic mucous membranes moist oropharynx clear Neck-no lymphadenopathy no JVD no thyromegaly Cardiovascular-regular rate and rhythm no murmur rubs or gallops Lungs-clear to auscultation bilaterally with good air exchange there is absolutely no accessory muscle use. Abdomen-soft nontender nondistended Extremities-no sinus clubbing or edema bilaterally Neurologic-cranial nerves II through XII intact as tested nonfocal exam Psych Mental Status: mental status grossly normal Speech and Movement: speech and movement normal Mood: congruent mood Affect: normal affect DS: Data Vitals/I&O Vitals and I&O: Vital Signs Temperature 36.9 C 09/12/24 07:27 Temperature Source Temporal Artery Scan 09/12/24 07:27 Pulse 80 09/12/24 07:27 Pulse Rhythm Regular 09/11/24 17:31 Pulse 83 09/11/24 17:01 Respiratory Rate 17 09/12/24 07:27 Respiratory Effort Normal, Non-Labored 09/11/24 17:31 Respiratory Depth Normal 09/11/24 17:31 Respiratory Pattern Normal 09/11/24 17:31 Blood Pressure 184/105 H 09/12/24 07:27 Blood Pressure Mean 131 09/12/24 07:27 Pulse Oximetry 95 09/12/24 07:27 Oxygen Delivery Method Room Air 09/12/24 07:27 Oxygen Flow Rate 0 09/12/24 07:27 Pain Level 0 09/12/24 07:27 Intake & Output 09/11/24 09/11/24 09/12/24 11:59 23:59 11:59 Intake Total 260 / 260 Balance 260 / 260 Weight 79.379 kg 71.6 kg Intake: IV 20 / 20 Oral 240 / 240 Other: Comment Pt voids independently. Data Completed and Pending Labs on day of discharge: Labs from last 24 hours 09/12/24 09/11/24 06:14 13:51 WBC 4.92 7.51 RBC 4.27 L 4.46 Hgb 13.5 13.9 Hct 38.3 L 40.3 MCV 90 90 MCH 31.6 31.2 MCHC 35.2 34.5 RDW 11.9 12.1 Plt Count 173 184 MPV 9.9 9.0 Immature Gran % 0.2 0.3 Neutrophils % 89.0 69.9 Lymphocytes % 7.1 19.2 Monocytes % 3.7 7.2 Eosinophils % 0.0 2.1 Basophils % 0.0 1.3 Nucleated RBC % 0.0 0.0 Absolute Neutrophils 4.38 5.25 Absolute Lymphocytes 0.35 L 1.44 Absolute Monocytes 0.18 0.54 Absolute Eosinophils 0.00 0.16 Absolute Basophils 0.00 0.10 Sodium 135 L 137 Potassium 3.9 3.5 Chloride 99 98 Carbon Dioxide 25.8 26.7 Anion Gap 10.2 12.3 H BUN 16 12 Creatinine 0.7 0.8 Est GFR (CKD-EPI 2020) 102.89 98.83 Glucose 165 H 128 H Calcium 8.9 9.1 Magnesium 1.4 L Total Bilirubin 0.4 0.6 AST 26 40 H ALT 28 35 Alkaline Phosphatase 121 H 132 H Total Protein 7.4 8.0 Albumin 3.7 4.1 PFSH All Active Problems (Updated 09/11/24 @ 16:48 by Morelia Moyer MD) Angioedema due to angiotensin converting enzyme inhibitor (JUSTIN-I) (Acute) Alcohol abuse (Chronic) Angioedema (Acute) Atherosclerotic heart disease (Acute) Hx of adenomatous colonic polyps (Acute) Tobacco use (Acute) COVID-19 (Acute) Psoriasis (Chronic) Elevated PSA (Acute) Tubulovillous adenoma (Acute ~09/22/19) Pre-op evaluation (Acute) Colon cancer screening (Acute) CAD (coronary artery disease) (Chronic) History of tobacco abuse (Acute) Hyperlipidemia (Acute) HTN (hypertension) (Chronic) Medical History Fracture of left clavicle s/p ORIF 2011 Hx of fracture of clavicle ORIF l clavicle- Lucille Pneumothorax L side approx 1997 or 1998 Sessile colonic polyp Surgical History History of heart artery stent LAD in 2011 Social History Smoking/Tobacco Use Status: Current every day Tobacco Type: cigarettes Years smoked: 25 Smoking risk assessment performed?: Yes Alcohol Intake: current Alcohol Intake frequency: 0-2 drinks per day Alcohol type: hard liquor Drug use: Never Substance use type: does not use Housing: house Do you feel safe at home: Yes Do you feel safe in your relationship?: Yes Time Spent with Patient Time Spent with Patient: <45 minutes Time was spent: preparing to see the patient(eg.review tests), obtaining and/or reviewing separately otained hiistory, ordering medications,tests, procedures, referring, communicating with other health care administrative tech, indepentently interpreting results, counseling the patient and care coordination
[2024-09-12 07:52] VITALS: BP 170/85
[2024-09-12] MEDS: Thiamine 100 MG TAB PO (07:52)
[2024-09-12] MEDS: Carvedilol 6.25 MG TAB PO (07:53)
[2024-09-12] MEDS: predniSONE 20 MG TAB PO (07:53)
--- NOTE | 2024-09-12 08:03 | PDOC.CMDIS ---
Date of service: 09/12/24 Time of Service: 08:03 LACE Index Scoring Tool Questions: Length of Stay (in days): 1 Was the patient admitted via the E.D.?: Yes E.D. Visits: 1 Answers: Total Score: 5 Risk of Readmission: Low Risk Care Management Discharge Plan Reason for Hospitalization: Angioedema from luis inhibitor Discharge Plan: Kevin will be discharge home today. It is recommended he follow up with his community providers and continue per his plan of care. He will transport via private vehicle. Patient/Family Education Needs: Review of discharge instructions, activity, limitation, and plan of care. Discuss Ask Me Three.
[2024-09-12] MEDS: Aspirin E.C. 325 MG TABEC PO (08:13)
== END 2024-09-12 09:21 | disposition home or self-care (01) ==
LOC: ER 16:48 → MS 17:07
PROVIDERS: Admitting Provider Hospitalist; Emergency Provider Emergency Medicine; PCP Family Medicine; Visit Provider Hospitalist
DX: T78.3XXA Angioneurotic edema, initial encounter (principal); F10.10 Alcohol abuse, uncomplicated; I10 Essential (primary) hypertension; F17.210 Nicotine dependence, cigarettes, uncomplicated; I25.10 Atherosclerotic heart disease of native coronary artery without angina pectoris; L40.9 Psoriasis, unspecified; E78.5 Hyperlipidemia, unspecified; Z95.5 Presence of coronary angioplasty implant and graft; Z79.899 Other long term (current) drug therapy
CPT/HCPCS: 00123; 80053; 96365; 96366; 96372; 96375; 99285; J1650; 83735; 85025; 99222; 99238; G0378; J0166; J1200; J2919; J3475; J7512